=== PATIENT | female | born 1995 | race Caucasian/White ===

== ENCOUNTER 2018-03-31 10:33 | Day surgery (SDC) | payer SELFPAY ==
[2018-03-29 15:01] VITALS: BMI 21.2
[2018-03-31] MEDS ORDERED: CEFAZOLIN 1 GM/D5W 1 GM/50 ML BAG ONE (11:18)
[2018-03-31] MEDS ORDERED: MIDAZOLAM HCL 2 MG/2 ML SINGLE DOSE VIAL ONE (12:10)
[2018-03-31] MEDS ORDERED: PROPOFOL 20 ML ONE (12:25)
[2018-03-31] MEDS ORDERED: ROCURONIUM BROMIDE 50 MG/5 ML VIAL ONE ×2 (12:25→14:22)
[2018-03-31] MEDS ORDERED: fentaNYL CITRATE 250 MCG/5 ML VIAL ONE ×2 (12:25→15:54)
[2018-03-31] MEDS ORDERED: ceFAZolin SODIUM 1 GM VIAL IVPB ONE (12:41)
[2018-03-31] MEDS ORDERED: PROMETHAZINE HCL 25 MG/1 ML VIAL IVPUSH PRN (17:19)
[2018-03-31] MEDS ORDERED: oxyCODONE HCL 5 MG TABLET PO PRN ×2 (17:19→17:38)
[2018-03-31] MEDS ORDERED: ONDANSETRON 4 MG/2 ML VIAL IVPUSH PRN (17:19)
[2018-03-31] MEDS ORDERED: ONDANSETRON 4 MG/2 ML VIAL ONE (17:25)
[2018-03-31] MEDS ORDERED: ACETAMINOPHEN INJECTION 100 ML IVPB ONE (17:25)
[2018-03-31] MEDS ORDERED: LACTATED RINGERS SOLUTION 1,000 ML IV SCH ×2 (17:30→17:45)
[2018-03-31] MEDS ORDERED: ACETAMINOPHEN 1000 MG/100 ML VIAL (NON FORMULARY) IVPB ONE (17:30)
[2018-03-31] MEDS: oxyCODONE HCL 5 MG TABLET PO PRN ×2 (17:30→17:50)
[2018-03-31] MEDS ORDERED: ONDANSETRON 4 MG/2 ML VIAL IVPB PRN (17:38)
[2018-03-31] MEDS ORDERED: oxyCODONE HCL 5 MG TABLET ONE ×2 (19:30→19:53)
[2018-03-31 20:08] VITALS: BP 104/50; PULSE 81
[2018-03-31 20:47] VITALS: TEMP 98
--- NOTE | 2018-04-01 09:58 | OP ---
DATE OF OPERATION: 03/31/2018 TITLE OF PROCEDURE: Bilateral reduction mammoplasty. PREOPERATIVE DIAGNOSIS: Bilateral symptomatic micromastia. POSTOPERATIVE DIAGNOSIS: Bilateral symptomatic micromastia. ATTENDING SURGEON: Horace Saini MD GEOPHYSICAL DATA TECHNICIAN: Wenceslao Paz PA-C The patient was marked in the holding area, nipples were sited at 20.5 cm from the sternal notch bilaterally. An inverted T-Gee-type pattern inferior pedicle breast reduction is planned. Patient is counseled on risks, benefits, and alternatives to procedure, and understands and agrees to the procedure. She is a wide awake, aware of all incisions and resulting scars. Sequential compression stockings and NILA hose were applied in the holding area. She was then brought to the operating room and placed in a supine position. Position is carefully checked by Surgical and Anesthesia team. Sequential compression stockings are plugged in. She is carefully padded and prepped and draped in standard surgical fashion. A g of Ancef was given preoperative. A timeout is called. Patient, procedure, sites, and sides were verified. At this point, the nipples were traced with 42-mm bilateral cookie cutters. Inferior pedicle measuring 8 cm are marked. The breast under tension, the incision is made de-epithelializing the pedicle with the exception of the nipple-areolar complex. Skin flaps were elevated superiorly, medially, and laterally to the level of the chest wall. The pedicle was developed by removing excess breasts and skin tissue from the pedicle. The resection weight on the right side is 200 g even. This is tailor tacked closed. Attention was then directed toward the contralateral side where a mirror image procedure was performed. The resection weight on the left side is 188 g. The patient was brought to a seated position. The assessment is that there is excellent asymmetry of size and shape and nipple position. At this point, size 10 flat SWATI drains were brought out the lateral extent of the incisions and secured with 2-0 silk drainage suture. Hemostasis was meticulously achieved. The wounds were copiously irrigated. The closure was then performed. Vircyl 2-0 sutures were used to pexi the pedicle in the superior and medial position for elevation and stability. The inverted T-point is closed with a half-buried mattress 2-0 nylon suture. The vertical and horizontal limbs were then closed with a series of interrupted buried deep dermal 3-0 Monocryl followed by a running subcuticular 3-0 Monocryl suture. The nipple-areola inset with a series of interrupted buried deep dermal 4-0 Monocryl suture followed by a running subcuticular 4-0 Monocryl suture. The nipples were pink and viable at the end of the procedure. All tissues are viable. There is no evidence of any ischemia or congestion. The drains were placed to bulb suction. The patient is dressed with Steri-Strips, ABD gauze, and surgical bra, awoken from anesthesia, and transferred to recovery without complication. Anthony [id number]
--- NOTE | 2018-04-04 16:39 | PATH ---
Surgical Pathology Report Patient Name: DIDIER FRANKLIN [facility] [place]. Rec. #: [id number] /Age/Gender: 1995 (Age: 23) / F Account: [id number] Location: [facility] SURGICAL Taken: 03/31/2018 Received: 04/01/2018 Reported: 04/04/2018 Physicians: Horace Saini Specimen(s) Received A: RIGHT BREAST TISSUE B: LEFT BREAST TISSUE Clinical History Macromastia Final Diagnosis A. BREAST, RIGHT, EXCISION: BENIGN BREAST TISSUE WITH FIBROCYSTIC CHANGES INCLUDING STROMAL FIBROSIS AND MICROCYSTS. SKIN WITHOUT SIGNIFICANT PATHOLOGIC FINDINGS. B. BREAST, LEFT, EXCISION: BENIGN BREAST TISSUE WITH FIBROCYSTIC CHANGES INCLUDING STROMAL FIBROSIS, APOCRINE METAPLASIA, MICROCYSTS, AND COLUMNAR CELL CHANGE. SKIN WITHOUT SIGNIFICANT PATHOLOGIC FINDINGS. Electronically Signed Daisy Cooley M.D. Gross Description A. Received in formalin labeled "right breast," is a 191 g, 16.0 x 16.0 x 2.0 cm aggregate of multiple unoriented portions of fibroadipose tissue and merritt, unremarkable skin. Sectioning reveals abundant dense, white fibrous tissue. No definitive masses are identified. [employer] sections are submitted in 4 cassettes. B. Received in formalin labeled "left breast," is a 186 g, 15.5 x 13.0 x 2.0 cm aggregate of multiple portions of fibroadipose tissue and merritt, unremarkable skin. Sectioning reveals abundant dense, white fibrous tissue. No definitive masses are identified. Pick And Shovel Man sections are submitted in 4 cassettes. 04/01/201804/01/2018
== END 2018-03-31 20:30 | disposition home or self-care (01) ==
LOC: JASU-SURG 10:33
PROVIDERS: ATTEND Plastic Surgery
PROC: 0HBV0ZZ Excision of Bilateral Breast, Open Approach (ICD-10-PCS; principal; 2018-03-31 12:00)
DX: N62 Hypertrophy of breast (principal)
CPT/HCPCS: 84703; 88305-TC; 94760; J0131